=== PATIENT | male | born 1960 | race Caucasian/White ===

== ENCOUNTER 2022-02-20 07:49 | Day surgery (SDC) | payer BC ==
[~2022-02-20 07:49] MED LIST: Lactated Ringers 1,000 ML IV SCH; Sodium Chloride 0.9% 10 ML Syringe FLUSH PRN
[2022-02-20] MEDS ORDERED: Midazolam 1 MG/ML 2 ML SDV ONE ×2 (08:27→09:00)
[2022-02-20] MEDS ORDERED: fentaNYL 250 MCG/5 ML SDV ONE ×2 (08:27→09:00)
[2022-02-20] MEDS ORDERED: Propofol 200 MG/20 ML SDV ONE ×2 (08:27→09:00)
[2022-02-20] MEDS ORDERED: Ondansetron 4 MG/2 ML SDV ONE (09:00)
[2022-02-20] MEDS ORDERED: Dexamethasone 10 MG/ML SDV ONE (09:00)
[2022-02-20] MEDS ORDERED: Neostigmine Methylsulfate 10 MG/10 ML MDV ONE (09:00)
[2022-02-20] MEDS ORDERED: ceFAZolin 1 GM Vial ONE (09:00)
[2022-02-20] MEDS ORDERED: Succinylcholine 200 MG/10 ML MDV ONE (09:00)
[2022-02-20] MEDS ORDERED: Glycopyrrolate 0.2 MG/ML SDV ONE (09:00)
[2022-02-20] MEDS ORDERED: Rocuronium 100 MG/10 ML MDV ONE (09:00)
[2022-02-20] MEDS ORDERED: Bupivacaine 0.25%/EPINEPHrine 1:200,000 30 ML SDV ONE (09:25)
== END 2022-02-20 14:22 | disposition home or self-care (01) ==
LOC: LL.SDS 07:49
PROVIDERS: ATTEND Surgery
DX: K81.1 Chronic cholecystitis (principal); K82.8 Other specified diseases of gallbladder; F17.210 Nicotine dependence, cigarettes, uncomplicated; Z98.890 Other specified postprocedural states
CPT/HCPCS: 00790; 47562; J0330; J0690; J1100; J2250; J2405; J2704; J2710; J3010; J3490; J7120